=== PATIENT | female | born 1970 | race Caucasian/White ===

== ENCOUNTER → 2022-06-21 | Outpatient (CLI) | payer BC ==
[2022-06-21 15:06] LABS: Basophils # (A) 0.05 X 10*3/uL (0.00-0.10); Basophils % (A) 0.8 %; Eosinophils # (A) 0.09 X 10*3/uL (0.04-0.35); Eosinophils % (A) 1.5 %; HCT 43.2 % (37.2-46.3); HGB 13.1 g/dL (12.0-15.0); Immature Grans, Automated 0.3 %; Lymphocytes # (A) 1.86 X 10*3/uL (0.90-5.00); Lymphocytes % (A) 30.8 %; MCH 25.7 pg (27.0-32.0); MCHC 30.3 g/dL (32.0-37.0); MCV 84.7 fL (80.0-97.0); Monocytes # (A) 0.52 X 10*3/uL (0.20-1.00); Monocytes % (A) 8.6 %; NRBC Per 100 WBC 0 /100 WBCS (0.0-0.0); Platelet Count 240 X 10*3/uL (140-440); RDW 15.5 % (11.5-14.5); WBC 6.04 X 10*3/uL (4.50-10.00)
[2022-06-21 15:44] LABS: African American GFR (CKD) 117.1 (60.0-200.0); Anion Gap 11.4 mmol/L (10.00-18.00); BUN/Creat Ratio 26.71 Ratio (12.00-20.00); Blood Urea Nitrogen 18.7 mg/dL (9.0-27.0); Calcium 9.8 mg/dL (8.7-10.3); Carbon Dioxide 25.6 mmol/L (20.0-27.5); Potassium 4.4 mmol/L (3.5-5.5)
[2022-06-21 16:19] LABS: Appearance,Urine Clear (Clear); Bilirubin,Urine Negative (Negative); Blood,Urine Negative (Negative); Color,Urine Yellow (Yellow); Ketones,Urine Negative (Negative); Nitrite,Urine Negative (Negative); PH, Urine 6.5 (5.0-8.0); Specific Gravity,Urine 1.014 (1.001-1.030); Urobilinogen,Urine 0.2 (0.2,1.0)
== END | disposition home or self-care (01) ==
LOC: LABPAT 09:26
PROVIDERS: ATTEND Urology
DX: Z18.12 Retained nonmagnetic metal fragments (principal); N20.0 Calculus of kidney; R31.29 Other microscopic hematuria
CPT/HCPCS: 36415; 80048; 81003; 85025; 87086

== ENCOUNTER 2022-06-29 07:13 | Day surgery (SDC) | payer BC ==
[2022-06-27 09:04] VITALS: BMI 49.2
--- NOTE | 2022-06-28 22:07 | P.GSHP ---
History of Present Illness H&P Date: 06/28/22 Chief Complaint: Flank pain The patient is a 52-year-old white female with recent flank pain. CT scan shows a 5 mm left lower pole renal calculus, and a 10 x 24 mm right lower pole renal calculus. She has a history of urolithiasis, for which she previously underwent ureteroscopy. She passes approximately 2 stones annually. A 24-hour urine study showed oliguria. Treatment options were reviewed, and she has elected to undergo bilateral ureteroscopy with stone manipulation. - Constitutional Constitutional: Denies chills, Denies fever - Gastrointestinal Gastrointestinal: Reports nausea - Genitourinary (Female) Genitourinary: Reports flank pain, Reports kidney stones, Denies hematuria Past Medical History Past Medical History: Asthma, Cancer, Pulmonary Embolus (PE), Sleep Apnea/CPAP/BIPAP, Supraventricular Tachycardia (SVT) Additional Past Medical History / Comment(s): LEFT BREAST CANCER WITH CHEMO IN 2009. NO SLEEP APNEA MACHINE. RECENTLY DIAGNOSED WITH SVT AND IS SOON TO SEE A INSIDE TRUCKER (06/2022). KIDNEY STONES History of Any Multi-Drug Resistant Organisms: None Reported Past Surgical History: Section Additional Past Surgical History / Comment(s): KIDNEY STONE REMOVAL. LT MASTECTOMY WITH RECONSTRUCTION FOLLOWED BY A RT MASTECTOMY WITH RECONSTRUCTION Past Anesthesia/Blood Transfusion Reactions: No Reported Reaction, Motion Sickness Past Psychological History: No Psychological Hx Reported Smoking Status: Never smoker Past Alcohol Use History: None Reported Past Drug Use History: None Reported - Past Family History Mother Family Medical History: Diabetes Mellitus, Hyperlipidemia GRANDMOTHER Additional Family Medical History / Comment(s): "BLOOD CLOTS" Medications and Allergies Home Medications Medication Instructions Recorded Confirmed Type No Known Home Medications 06/27/22 06/27/22 History Allergies Allergy/AdvReac Type Severity Reaction Status Date / Time Penicillins Allergy Rash/Hives Verified 06/27/22 08:53 Surgical - Exam - General well developed, well nourished, no distress - Neck no masses, trachea midline - Respiratory normal respiratory effort - Abdomen Abdomen: soft, non tender, no guarding, no rigid, no rebound - Psychiatric oriented to time, oriented to person, oriented to place, speech is normal, memory intact Results - Imaging CT scan - abdomen: report reviewed, image reviewed Assessment and Plan (1) Calculus of kidney Status: Acute Code(s): N20.0 - CALCULUS OF KIDNEY SNOMED Code(s): 43625818 Plan: Cystoscopy, bilateral ureteroscopy with Holmium laser lithotripsy and stone basketing, bilateral ureteral stent insertion. The procedure has been reviewed in detail with the patient. She is aware of potential risks, which include anesthesia, bleeding, infection, and ureteral injury. Given the large size of the right renal calculus, she was initially advised to consider a right percutaneous nephrolithotomy. However, it is felt that this calculus can be removed ureteroscopically, though a secondary procedure is anticipated and has been scheduled to be done on 07/20/2022.
[~2022-06-29 07:13] MED LIST: DEXAMETHASONE SOD PHOSPHATE 4 MG/ML 1 ML VIAL IV ONE; HYDROmorphone 0.5 MG/0.5 ML SYRINGE IVP PRN; LACTATED RINGERS 1,000 ML IV SCH; LIDOCAINE 1% (10MG/ML) FOR IV START INTRADERMA PRN; MIDAZOLAM 2 MG/2 ML VIAL IV PRN; ONDANSETRON 4 MG/2 ML VIAL IVP ONE; ceFAZolin 3 GM in SODIUM CHLORIDE 0.9% 100 ML IVPB PRN
--- NOTE | 2022-06-29 07:40 | XR ---
EXAMINATION TYPE: XR KUB DATE OF EXAM: 06/29/2022 Comparison: None Clinical History: 52-year-old female presenting lithotripsy, KIDNEY STONE Findings: 1.5 cm density right mid abdomen. 8 mm density on the left. Tiny phlebolith left side of the pelvis. Nonobstructive bowel gas pattern. Scattered mild to moderate stool. Impression: 1.5 cm density in the right mid abdomen, probably a nonobstructive stone. 8 mm left renal calculus.
[2022-06-29 08:20] LABS: Glucose,Whole Blood 124 mg/dL (70-110)
[2022-06-29] MEDS ORDERED: SCOPOLAMINE 1 MG/72 HR PATCH TRANSDERM ONE (08:29)
[2022-06-29] MEDS ORDERED: NEOSTIGMINE 1 MG/ML 10 ML VIAL ONE (09:05)
[2022-06-29] MEDS ORDERED: MIDAZOLAM 2 MG/2 ML VIAL ONE (09:05)
[2022-06-29] MEDS ORDERED: GLYCOPYRROLATE 0.2 MG/ML 2 ML VIAL ONE (09:05)
[2022-06-29] MEDS ORDERED: PROPOFOL 10 MG/ML 20 ML VIAL IV ONE (09:05)
[2022-06-29] MEDS ORDERED: SUCCINYLCHOLINE CHLORIDE 200 MG/10 ML VIAL IV ONE (09:05)
[2022-06-29] MEDS ORDERED: fentaNYL (PF) 50 MCG/ML 2 ML AMP ONE (09:05)
[2022-06-29] MEDS ORDERED: LIDOCAINE 2% INJ 20 MG/ML (2 ML VIAL) ONE (09:05)
[2022-06-29] MEDS ORDERED: ROCURONIUM 10 MG/ML (5 ML VIAL) IV ONE (09:05)
[2022-06-29 11:22] VITALS: TEMP 98
[2022-06-29] MEDS ORDERED: KETOROLAC 15 MG/ML 1 ML VIAL ONE (12:35)
[2022-06-29] MEDS ORDERED: KETOROLAC 15 MG/ML 1 ML VIAL IVP ONE (12:39)
[2022-06-29 13:17] VITALS: BP 133/83; PULSE 85; RESP 16
--- NOTE | 2022-06-29 13:44 | P.OP ---
Date of Procedure: 06/29/22 Preoperative Diagnosis: Bilateral renal calculi Postoperative Diagnosis: Same Procedure(s) Performed: Cystoscopy, left ureteroscopy, right ureteroscopy with Holmium laser lithotripsy, right ureteral stent insertion Anesthesia: MIRIAM Surgeon: Eran Bass Estimated Blood Loss (ml): 10 IV fluids (ml): 800 Pathology: none sent Condition: stable Disposition: PACU Indications for Procedure: The patient is a 52-year-old white female with recent flank pain. CT scan shows a 5 mm left lower pole renal calculus, and a 10 x 24 mm right lower pole renal calculus. She has a history of urolithiasis, for which she previously underwent ureteroscopy. She passes approximately 2 stones annually. A 24-hour urine study showed oliguria. Treatment options were reviewed, and she has elected to undergo bilateral ureteroscopy with stone manipulation. Operative Findings: No left renal calculus seen. Right mid pole calculus is impacted and adherent to the renal pelvic mucosa. Description of Procedure: The patient was taken to the operating room and placed in the dorsolithotomy position, with legs supported in Yunier stirrups. The external genitalia was prepped and draped sterilely. The 30 lens was used to introduce the 21-Macedonian Quiroga cystoscopic sheath through the urethra and into the bladder under direct vision. The bladder was examined in its entirety. Both ureteral orifices were normal anatomic location and configuration. No tumors or foreign bodies were seen. A 0.038 inch Glidewire was passed through the cystoscope. The left ureteral orifice was cannulated, and the Glidewire was advanced up to the renal pelvis. The cystoscope was removed, and an 11/13-Macedonian ureteral access catheter was passed over the wire, up to the proximal ureter. The Quiroga Boa flexible ureteroscope was then passed through the ureteral access catheter sheath, up to the renal pelvis. Each calyx was examined. However, a calculus was not seen. Particularly, the lower pole calyces were carefully examined but no calculi were seen. Pullout ureteroscopy showed no ureteral calculi, and no evidence of ureteral trauma. The Glidewire was passed up to the right renal pelvis, and the 11/13-Macedonian ureteral access catheter was passed over the wire, up to the proximal ureter. The flexible ureteroscope was then passed through the ureteral access catheter sheath and advanced under direct vision up to the renal pelvis. Each calyx was examined. A large calculus was identified within a mid pole calyx. The 272 micron Holmium laser probe was passed through the ureteroscope, and lithotripsy was performed. A portion of the calculus was fragmented. However, the calculus was adherent to the mucosa, and a good portion of the calculus was not accessible for laser treatment due to angulation issues. After performing is much laser lithotripsy as could be feasibly done, a Glidewire was passed through the ureteroscope, which was withdrawn along with the ureteral access catheter sheath. The Glidewire was backloaded into the cystoscope, which was passed into the bladder. A 24 cm, 6-Macedonian double-J ureteral stent was placed over the wire. Proper stent positioning was verified fluoroscopically and endoscopically. The bladder was emptied and the cystoscope removed. The patient tolerated the procedure well and was taken to the recovery room in stable condition. MARY ANN ROCKS Report: Procedure Acuity: Elective Stone Size and Location: 15 mm, right mid pole calyx Ureteral Dilation: No Ureteral Access Sheath Used: Yes Stone Sent for Analysis: Yes All Stones/Fragments Were Removed with a Basket: No Complications: No Preoperative Antibiotics Given: Yes Stent Placed: Yes If Stent Placed, Was String Left Attached: No If Stent Placed, When is it to be Removed: 3 weeks Discharge Medications: Toradol, tamsulosin, tolterodine Plan: Right ESWL
--- NOTE | 2022-06-29 15:25 | FL ---
Intraoperative/procedural fluoroscopic services were provided. Total fluoroscopy time is 48.2 seconds with a total of 3 submitted images to PACS. Please see the operative/procedural note for further det ails. DAP: 14.634
== END 2022-06-29 13:14 | disposition home or self-care (01) ==
LOC: OR 07:13
PROVIDERS: ATTEND Urology
DX: N20.0 Calculus of kidney (principal); J45.909 Unspecified asthma, uncomplicated; I47.1 Supraventricular tachycardia; G47.33 Obstructive sleep apnea (adult) (pediatric); E66.01 Morbid (severe) obesity due to excess calories; Z68.42 Body mass index [BMI] 45.0-49.9, adult; Z86.711 Personal history of pulmonary embolism; Z85.3 Personal history of malignant neoplasm of breast; Z92.21 Personal history of antineoplastic chemotherapy; Z98.890 Other specified postprocedural states; Z88.0 Allergy status to penicillin; Z79.899 Other long term (current) drug therapy
CPT/HCPCS: 52356; 81025; 74018; C1769; J2250; J0330; J1100; J2710; J0690; J2405; J3010; J1885; J2704; J2001

== ENCOUNTER → 2022-07-14 | Outpatient (CLI) | payer BC ==
--- NOTE | 2022-07-14 13:37 | XR ---
EXAMINATION TYPE: XR KUB DATE OF EXAM: 07/14/2022 1:28 PM INDICATION: Patient age:Female; 52 years old; Reason for study: N200; PHH. COMPARISON: None. TECHNIQUE: One radiographic view of the abdomen was obtained. FINDINGS: Right ureteral stent with pigtail catheter is in appropriate position. Right renal calculus measuring 17 mm and on the left measuring up to 6 mm. The bowel gas pattern is nonspecific without d ilated loops of small or large bowel. There is no evidence for organomegaly or pneumoperitoneum. The osseous structures are intact. Fecal material and gas are demonstrated throughout the colon and re ctum. IMPRESSION: 1. Bilateral renal calculi. 2. Right ureteral stent in appropriate position.
== END | disposition home or self-care (01) ==
LOC: RADXRMAIN 13:14
PROVIDERS: ATTEND Urology
DX: N20.0 Calculus of kidney (principal); Z96.0 Presence of urogenital implants
CPT/HCPCS: 74018

== ENCOUNTER → 2022-09-15 | Outpatient (CLI) | payer BC ==
--- NOTE | 2022-09-15 09:10 | US ---
EXAMINATION TYPE: US kidneys/renal and bladder DATE OF EXAM: 09/15/2022 COMPARISON: NONE CLINICAL INDICATION: Female, 52 years old with history of N20.0; EXAM MEASUREMENTS: Right Kidney: 12.6 x 5.0 x 6.3 cm Left Kidney: 13.1 x 5.2 x 5.6 cm Right Kidney: 1.7cm stone lateral mid pole Left Kidney: 0.7cm echogenic focus superior pole Bladder: wnl Bilateral Jets seen: yes There is no evidence for hydronephrosis at this point in time. No masses are identified. The urinar y bladder is anechoic. Bilateral ureteral jets are seen. IMPRESSION: Nonobstructing nephrolithiasis.
--- NOTE | 2022-09-18 11:46 | XR ---
Supine abdomen. DATE: 09/15/2022. COMPARISON: 07/14/2022. Clinical history: Right flank pain. IMPRESSION: There is a nonobstructive bowel gas pattern. The right-sided nephroureteral stent has been removed. There is a large area of calcification overlyi ng the interpolar cortex of the right kidney measuring 1.8 cm in diameter. This is unchanged 7.6 mm s tone overlying the lower pole of the left kidney appears unchanged. There are no definitive suspicious calcification otherwise seen along the courses of the ureters.
== END | disposition home or self-care (01) ==
LOC: RADUSWWP 07:30
PROVIDERS: ATTEND Urology
DX: N20.0 Calculus of kidney (principal)
CPT/HCPCS: 74018; 76770

== ENCOUNTER 2023-04-27 07:32 | Day surgery (SDC) | payer BC ==
[2023-04-25 10:22] VITALS: BMI 51.6
[~2023-04-27 07:32] MED LIST changes: -DEXAMETHASONE SOD PHOSPHATE 4 MG/ML 1 ML VIAL IV ONE; -HYDROmorphone 0.5 MG/0.5 ML SYRINGE IVP PRN; -LACTATED RINGERS 1,000 ML IV SCH; -MIDAZOLAM 2 MG/2 ML VIAL IV PRN; -ONDANSETRON 4 MG/2 ML VIAL IVP ONE; -ceFAZolin 3 GM in SODIUM CHLORIDE 0.9% 100 ML IVPB PRN
[2023-04-27] MEDS: LACTATED RINGERS 1,000 ML IV SCH (08:02)
[2023-04-27 08:55] VITALS: TEMP 98
[2023-04-27] MEDS ORDERED: PROPOFOL 10 MG/ML 20 ML VIAL IV ONE (09:06)
--- NOTE | 2023-04-27 09:24 | P.PCN ---
Date of Procedure: 04/27/23 Procedure(s) Performed: BRIEF HISTORY: Patient is a 53-year-old pleasant white female scheduled for an elective colonoscopy as a part of screening for colon cancer PROCEDURE PERFORMED: Colonoscopy. PREOPERATIVE DIAGNOSIS: Screening for colon cancer. IV sedation per Anesthesia. PROCEDURE: After informed consent was obtained, the patient, was brought into the endoscopy unit. IV sedation was administered by Anesthesia under continuous monitoring. Digital rectal examination was normal. Initially the Olympus CF-160 flexible video colonoscope was then inserted in the rectum, gradually advanced into the cecum without any difficulty. Careful examination was performed as the scope was gradually being withdrawn. Ileocecal valve and the appendiceal orifice were visualized and appeared normal. Prep was excellent. Mucosa of the cecum, ascending colon, transverse colon, descending colon, sigmoid colon, and rectum appeared normal. Retroflexion was performed in the rectum and no lesions were seen. The patient tolerated the procedure well. IMPRESSION: Normal-appearing colon from rectum to cecum with no evidence of colorectal neoplasia . RECOMMENDATIONS: Findings of this examination were discussed with the patient as well as a family. She was advised to have a repeat screening colonoscopy in 10 years.
[2023-04-27 10:08] VITALS: BP 143/97; PULSE 83; RESP 19
== END 2023-04-27 10:12 | disposition home or self-care (01) ==
LOC: ORWHC2ENDO 07:32
PROVIDERS: ATTEND Internal Medicine Gastroenterology
DX: Z12.11 Encounter for screening for malignant neoplasm of colon (principal); I47.10 Supraventricular tachycardia, unspecified; J45.909 Unspecified asthma, uncomplicated; G47.33 Obstructive sleep apnea (adult) (pediatric); N20.0 Calculus of kidney; E66.01 Morbid (severe) obesity due to excess calories; Z98.891 History of uterine scar from previous surgery; Z98.890 Other specified postprocedural states; Z79.899 Other long term (current) drug therapy; Z88.0 Allergy status to penicillin; Z68.43 Body mass index [BMI] 50.0-59.9, adult
CPT/HCPCS: 45378; J2704

== ENCOUNTER → 2023-08-27 | Outpatient (CLI) | payer BC ==
--- NOTE | 2023-08-27 13:51 | CT ---
EXAMINATION TYPE: CT soft tissue neck w con CT DLP: 581 mGycm, Automated exposure control for dose reduction was used. DATE OF EXAM: 08/27/2023 11:53 AM COMPARISON: None. CLINICAL INDICATION:Female, 53 years old with history of R22.1 LOCALIZED SWELLING, MASS AND LUMP, NEC K; PHH, left sided neck mass TECHNIQUE: Standard enhanced CT of the neck following intravenous administration of 100 cc of Isovue 300. Axial sections with coronal and sagittal reformats were obtained. BB marker was placed. FINDINGS: Brain: Visualized portions are grossly unremarkable. Orbits: Unremarkable Sinuses: Right inferior maxillary sinus 1.7 cm mucous retention cyst. The remaining paranasal sinuses are clear. Suprahyoid Neck: The oropharynx, oral cavity, parapharyngeal and retropharyngeal spaces are clear and symmetric. The nasopharynx is unremarkable. Infrahyoid Neck: The larynx, hypopharynx, and supraglottic area are clear and symmetric. Parotid Glands: Right parotid gland appears unremarkable. There is a heterogenous lesion identified w ithin the inferior left parotid gland measuring 2.4 x 1.9 x 3.0 cm (series 3, image 44 and series 4, image 35). This demonstrates peripheral enhancement and some internal solid enhancing components and septations. This is at site of external BB marker. No definitive invasion into surrounding structures . No calcifications identified. Submandibular Glands: Unremarkable. Musculoskeletal: Degenerative disc disease changes of the visualized spine are present. No acute proc ess. Lymph nodes: Multiple nonenlarged lymph nodes are seen along both anterior chains of the neck. Vascular structures: Visualized major arteries are patent without evidence of aneurysm. Thoracic Inlet/airway: Airway is patent. There is a 5 mm pulmonary nodule within the right lung apex (series 3, image 78). Soft tissues/Thyroid: Thyroid and remainder of the soft tissues are unremarkable. Other: none. IMPRESSION 1. Left inferior parotid gland heterogeneously enhancing 3.0 cm mass which corresponds to palpable ma rker. Etiologies include benign and malignant salivary gland tumors versus other. Further evaluation with ultrasound-guided tissue sampling is recommended. 2. Right apex 5 mm pulmonary nodule. Consider further evaluation with CT chest.
== END | disposition home or self-care (01) ==
LOC: RADCTMAIN 11:24
PROVIDERS: ATTEND Otolaryngology
DX: R91.1 Solitary pulmonary nodule (principal)
CPT/HCPCS: 70491; Q9967

== ENCOUNTER 2023-09-03 07:57 | Day surgery (SDC) | payer BC ==
[2023-09-03 09:36] VITALS: RESP 18; TEMP 98.4
[2023-09-03 09:37] VITALS: PULSE 96
[2023-09-03 12:43] VITALS: BP 144/74
--- NOTE | 2023-09-03 16:03 | US ---
EXAMINATION TYPE: US biopsy submandibular region/neck DATE OF EXAM: 09/03/2023 9:54 AM CLINICAL INDICATION:Female, 53 years old with history of R22.1 localized swelling; , thyroid nodule. COMPARISON: 08/25/2023 CT ATTENDING: Dr. John Anna PROCEDURE: Informed consent was obtained. The risks and benefits of the procedure were discussed with the patien t. The site was marked. Timeout procedure was performed Ultrasound imaging demonstrates left submandibular region enlarged suspected lymph node/mass. The patient was prepped, draped in the usual sterile fashion, and locally anesthetized with 1% lidoca ine. 4 x 18-gauge core needle biopsies were obtained.. Samples were sent to the pathology department for further analysis. Patient tolerated the procedure without incident and was sent home in stable condition. IMPRESSION: Successful ultrasound guided core biopsy of left submandibular gland lymph node/mass..
== END 2023-09-03 10:20 | disposition home or self-care (01) ==
LOC: RADPROMAIN 07:57
PROVIDERS: ATTEND Otolaryngology
DX: R22.1 Localized swelling, mass and lump, neck (principal); E04.1 Nontoxic single thyroid nodule; C50.919 Malignant neoplasm of unspecified site of unspecified female breast
CPT/HCPCS: 42400; 76942; 88305

== ENCOUNTER → 2023-12-28 | Outpatient (CLI) | payer BC ==
--- NOTE | 2023-12-28 15:38 | US ---
EXAMINATION TYPE: US thyroid st tissue head/neck DATE OF EXAM: 12/28/2023 COMPARISON: NONE CLINICAL INDICATION: Female, 53 years old with history of R22.0 LEFT SUBMANDIBULAR MASS; EXAMINATION TYPE: US thyroid st tissue head/neck DATE OF EXAM: 12/28/2023 COMPARISON: NONE CLINICAL INDICATION: Female, 53 years old with history of R22.0 LEFT SUBMANDIBULAR MASS; Left submand ibular mass. TECHNIQUE: FINDINGS: Hypoechoic area seen appears same as previous. Measuring 2.3 x 1.3 x 2.4 cm. IMPRESSION: Stable left-sided submandibular gland node/mass [facility] Ned Brown, , 12/28/2023 3:36 PM
== END | disposition home or self-care (01) ==
LOC: RADUSWWP 15:15
PROVIDERS: ATTEND Otolaryngology
DX: R22.1 Localized swelling, mass and lump, neck (principal)
CPT/HCPCS: 76536